=== PATIENT | female | born 1995 | race Caucasian/White ===

== ENCOUNTER 2017-10-02 09:19 | Emergency (ER) | END 2017-10-02 10:13 | disposition home or self-care (01) ==

== ENCOUNTER 2017-10-11 09:36 | Emergency (ER) | END 2017-10-11 10:43 | disposition home or self-care (01) ==

== ENCOUNTER 2017-10-18 07:48 | Emergency (ER) | END 2017-10-18 09:05 | disposition home or self-care (01) ==

== ENCOUNTER 2018-05-01 10:04 | Emergency (ER) | END 2018-05-01 11:55 | disposition home or self-care (01) ==